=== PATIENT | female | born 1975 | race Two or more races ===

== ENCOUNTER 2020-05-06 11:20 | Emergency (ER) | payer MEDICAID, OTHER ==
[~2020-05-06] VITALS: Ht 154.9 cm; Wt 73.5 kg
[2020-05-06 12:09] LABS: Basophils # (auto) 0 10 ^3/uL (0-0.2); Basophils % (auto) 0.6 % (0.0-2.0); Eosinophils # (auto) 0.1 10 ^3/uL (0-0.8); Eosinophils % (auto) 1.3 % (0.0-7.0); Hematocrit 44.7 % (36.0-46.0); Hemoglobin 15.1 g/dL (12.2-16.2); Lymphocytes # (auto) 1.6 10 ^3/uL (0.4-5.4); Lymphocytes % (auto) 21.1 % (10.0-50.0); Mean Corpuscular Hemoglobin 28.7 pg (28.0-32.0); Mean Corpuscular Hgb Conc. 33.8 g/dL (32.0-36.0); Monocytes # (auto) 0.4 10 ^3/uL (0-1.3); Monocytes % (auto) 5.7 % (0.0-12.0); Neutrophils # (auto) 5.4 10 ^3/uL (1.6-8.6); Neutrophils % (auto) 71.3 % (37.0-80.0); Platelet Count (auto) 331 10^3/uL (140-450); Red Blood Cells 5.26 10^6/uL (4.0-5.20); Red Cell Distribution Width 14.9 % (11.8-14.3); White Blood Cell 7.5 10^3/uL (4.4-10.8)
[2020-05-06 12:28] LABS: Albumin 3.6 g/dL (3.4-5.0); Amylase 118 U/L (25-115); Anion Gap 1 (5-15); Blood Urea Nitrogen 10 mg/dL (7-18); Calcium 9.5 mg/dL (8.5-10.1); Carbon Dioxide 30 mmol/L (21-32); Chloride 106 mmol/L (98-107); Glucose 104 mg/dL (74-106); Lipase 124 U/L (73-393); Potassium 3.7 mmol/L (3.5-5.1); Sodium 137 mmol/L (136-145)
[2020-05-06 12:35] LABS: Alanine Aminotransferase 17 U/L (13-56); Alkaline Phosphatase 72 U/L (45-117); Aspartate Aminotransferase 13 U/L (15-37); Bilirubin, Total 0.4 mg/dL (0.2-1.0); GFR African American 78 mL/min; GFR Non-African American 64 mL/min; Total Protein 7.6 g/dL (6.4-8.2)
[2020-05-06 12:38] LABS: INR 1.06 (0.9-1.15)
[2020-05-06 16:11] VITALS: BP 127/70
== END 2020-05-06 16:09 | disposition home or self-care (01) ==
LOC: ER 11:20
DX: K29.50 Unspecified chronic gastritis without bleeding (principal); N39.0 Urinary tract infection, site not specified
CPT/HCPCS: 36415; 76705; 80053; 82150; 83690; 83735; 84484; 85025; 85610; 85730; 93005

== ENCOUNTER 2020-10-22 17:37 | Emergency (ER) | payer MEDICAID ==
[~2020-10-22] VITALS: Ht 154.9 cm; Wt 72.6 kg
[2020-10-22 18:25] LABS: Basophils # (auto) 0.1 10 ^3/uL (0-0.2); Basophils % (auto) 0.7 % (0.0-2.0); Eosinophils # (auto) 0.2 10 ^3/uL (0-0.8); Eosinophils % (auto) 1.9 % (0.0-7.0); Hemoglobin 15.5 g/dL (12.2-16.2); Lymphocytes # (auto) 2.3 10 ^3/uL (0.4-5.4); Lymphocytes % (auto) 25.9 % (10.0-50.0); Mean Corpuscular Hemoglobin 29.4 pg (28.0-32.0); Mean Corpuscular Hgb Conc. 35.2 g/dL (32.0-36.0); Mean Corpuscular Volume 83.6 fL (80.0-100.0); Monocytes # (auto) 0.7 10 ^3/uL (0-1.3); Monocytes % (auto) 8.1 % (0.0-12.0); Neutrophils # (auto) 5.6 10 ^3/uL (1.6-8.6); Neutrophils % (auto) 63.4 % (37.0-80.0); Nucleated Red Blood Cells % 0.1 %; Platelet Count (auto) 296 10^3/uL (140-450); Red Blood Cells 5.26 10^6/uL (4.0-5.20); Red Cell Distribution Width 14.9 % (11.8-14.3); White Blood Cell 8.8 10^3/uL (4.4-10.8)
[2020-10-22 18:40] LABS: Albumin 3.8 g/dL (3.4-5.0); Calcium 9.5 mg/dL (8.5-10.1); Magnesium 1.9 mg/dL (1.6-2.6); Potassium 3.8 mmol/L (3.5-5.1)
[2020-10-22 18:44] LABS: BUN/Creatinine Ratio 11.9; Bilirubin, Total 0.3 mg/dL (0.2-1.0); Total Protein 7.6 g/dL (6.4-8.2)
[2020-10-22 18:57] LABS: Urine Bacteria FEW /hpf (None Seen); Urine Blood 1+ /uL (Negative); Urine Mucus FEW (None Seen); Urine Specific Gravity 1.015 (1.001-1.035); Urine WBC 1 /hpf (0 - 5)
[2020-10-22 20:15] VITALS: BP 129/79
== END 2020-10-22 22:18 | disposition home or self-care (01) ==
LOC: ER 17:37
DX: N39.0 Urinary tract infection, site not specified (principal); Z90.49 Acquired absence of other specified parts of digestive tract; Z98.51 Tubal ligation status
CPT/HCPCS: 36415; 74176; 80053; 81001; 82150; 83690; 83735; 84702; 85025; 85049

== ENCOUNTER 2021-04-29 12:54 | Emergency (ER) | payer MEDICAID, OTHER ==
[~2021-04-29] VITALS: Ht 154.9 cm; Wt 72.6 kg
[2021-04-29 15:57] VITALS: BP 127/82
[2021-04-29] MEDS ORDERED: KETOROLAC TROMETH 60MG/2ML VIAL IM ONE (16:45)
[2021-04-29] MEDS ORDERED: PRED20TA2 PO (17:18)
[2021-04-29] MEDS ORDERED: ACET-1080 PO (17:18)
== END 2021-04-29 17:25 | disposition home or self-care (01) ==
LOC: EDUNIT# 12:54 → ER 12:54
DX: M50.30 Other cervical disc degeneration, unspecified cervical region (principal)
CPT/HCPCS: 72040; J1885

== ENCOUNTER 2022-02-14 14:26 | Emergency (ER) | payer MEDICAID ==
[~2022-02-14] VITALS: Ht 154.9 cm; Wt 80.0 kg
[~2022-02-14 14:26] MED LIST: ACET-1080 PO; PRED20TA2 PO
[2022-02-14 19:00] VITALS: BP 118/80
[2022-02-14] MEDS ORDERED: ACE3T PO (19:06)
[2022-02-14] MEDS ORDERED: ONDA-144 PO (19:06)
== END 2022-02-14 19:19 | disposition home or self-care (01) ==
LOC: ER 14:26
DX: G44.209 Tension-type headache, unspecified, not intractable (principal); N18.9 Chronic kidney disease, unspecified; Z90.49 Acquired absence of other specified parts of digestive tract
CPT/HCPCS: 70450

== ENCOUNTER 2022-05-15 11:10 | Emergency (ER) | payer MEDICAID ==
[~2022-05-15] VITALS: Ht 154.9 cm; Wt 80.0 kg
[~2022-05-15 11:10] MED LIST changes: +ACE3T PO; +ONDA-144 PO
[2022-05-15] MEDS ORDERED: SODIUM CHLORIDE 0.9% 1,000 ML IVB ONE (11:30)
[2022-05-15 11:54] LABS: Urine Bacteria None Seen /hpf (None Seen); Urine WBC None Seen /hpf (0 - 5)
[2022-05-15 12:17] LABS: Basophils # (auto) 0 10 ^3/uL (0-0.2); Basophils % (auto) 0.5 % (0.0-2.0); Eosinophils # (auto) 0.1 10 ^3/uL (0-0.8); Hemoglobin 15.2 g/dL (12.2-16.2); Lymphocytes # (auto) 2.1 10 ^3/uL (0.4-5.4); Mean Corpuscular Volume 84.1 fL (80.0-100.0); Monocytes # (auto) 0.6 10 ^3/uL (0-1.3)
[2022-05-15 12:19] LABS: Eosinophils % (auto) 1.6 % (0.0-7.0); Hematocrit 46.6 % (36.0-46.0); Lymphocytes % (auto) 23.8 % (10.0-50.0); Mean Corpuscular Hemoglobin 27.4 pg (28.0-32.0); Mean Corpuscular Hgb Conc. 32.6 g/dL (32.0-36.0); Monocytes % (auto) 7.1 % (0.0-12.0); Neutrophils # (auto) 5.8 10 ^3/uL (1.6-8.6); Red Blood Cells 5.54 10^6/uL (4.0-5.20); White Blood Cell 8.7 10^3/uL (4.4-10.8)
[2022-05-15 12:24] LABS: Albumin 3.6 g/dL (3.4-5.0); BUN/Creatinine Ratio 11.5; Calcium 9.7 mg/dL (8.5-10.1)
[2022-05-15 12:27] LABS: Bilirubin, Total 0.3 mg/dL (0.2-1.0); Total Protein 7.3 g/dL (6.4-8.2)
[2022-05-15 13:33] LABS: Urine Blood Negative /uL (Negative); Urine Specific Gravity 1.015 (1.001-1.035)
[2022-05-15 13:55] VITALS: BP 140/96
== END 2022-05-15 13:57 | disposition home or self-care (01) ==
LOC: ER 11:10
DX: R10.9 Unspecified abdominal pain (principal); I88.0 Nonspecific mesenteric lymphadenitis; R19.7 Diarrhea, unspecified; N18.9 Chronic kidney disease, unspecified; K21.9 Gastro-esophageal reflux disease without esophagitis; Z90.49 Acquired absence of other specified parts of digestive tract; Z79.899 Other long term (current) drug therapy; Z88.1 Allergy status to other antibiotic agents; Z88.8 Allergy status to other drugs, medicaments and biological substances
CPT/HCPCS: 36415; 80053; 81001; 85025; 93005; 96360; 99284; J7030

== ENCOUNTER 2024-02-08 17:49 | Inpatient (IN) | payer SELFPAY ==
[~2024-02-08] VITALS: Ht 154.9 cm; Wt 85.5 kg
[2024-02-08 19:01] LABS: Urine Bacteria None Seen /hpf (None Seen)
[2024-02-08 19:14] LABS: Basophils # (auto) 0.1 10 ^3/uL (0-0.2); Basophils % (auto) 0.7 % (0.0-2.0); Eosinophils # (auto) 0.2 10 ^3/uL (0-0.8); Eosinophils % (auto) 2.6 % (0.0-7.0); Hematocrit 43.2 % (36.0-46.0); Hemoglobin 14.4 g/dL (12.2-16.2); Lymphocytes # (auto) 2.3 10 ^3/uL (0.4-5.4); Lymphocytes % (auto) 28.5 % (10.0-50.0); Mean Corpuscular Hemoglobin 27.4 pg (28.0-32.0); Mean Corpuscular Hgb Conc. 33.4 g/dL (32.0-36.0); Mean Corpuscular Volume 82.2 fL (80.0-100.0); Monocytes # (auto) 0.5 10 ^3/uL (0-1.3); Monocytes % (auto) 6.9 % (0.0-12.0); Neutrophils # (auto) 4.9 10 ^3/uL (1.6-8.6); Neutrophils % (auto) 61.3 % (37.0-80.0); Nucleated Red Blood Cells % 0.1 %; Platelet Count (auto) 369 10^3/uL (140-450); Red Blood Cells 5.25 10^6/uL (4.0-5.20); Red Cell Distribution Width 15.6 % (11.8-14.3); White Blood Cell 7.9 10^3/uL (4.4-10.8)
[2024-02-08 19:18] LABS: Urine Blood TRACE /uL (Negative); Urine Clarity Turbid (Clear); Urine Color Light-Yellow (Yellow); Urine Protein, UAD 1+ (Negative); Urine Specific Gravity 1.014 (1.001-1.035); Urine Urobilinogen Normal (Negative); Urine WBC 1 /hpf (0 - 5); Urine pH 5.5 (5.0-9.0)
[2024-02-08] MEDS: ASPirin 81 mg TAB PO ONE (19:21)
[2024-02-08 19:36] LABS: Alanine Aminotransferase 22 U/L (7-40); Albumin 4.4 g/dL (3.2-4.8); Alkaline Phosphatase 95 U/L (46-116); Anion Gap 6 (5-15); Aspartate Aminotransferase 17 U/L (13-40); Bilirubin, Total 0.3 mg/dL (0.2-1.0); Blood Urea Nitrogen 15 mg/dL (9-23); Calcium 10.5 mg/dL (8.7-10.4); Carbon Dioxide 29 mmol/L (20-31); Chloride 104 mmol/L (98-107); Glucose 123 mg/dL (74-106); Potassium 4.3 mmol/L (3.5-5.1); Sodium 139 mmol/L (136-145); Total Protein 7.2 g/dL (5.7-8.2)
[2024-02-08] MEDS: MORPHINE SULFATE 4 MG/ML SYR/VIAL IV ONE (20:50)
[2024-02-08] MEDS: ONDANSETRON HCL 4 MG/2 ML VIAL IV ONE (20:51)
[2024-02-09] VITALS (8 sets, daily range): BP systolic 105–134; BP diastolic 64–83; PULSE 59–90; RESP 14–19; TEMP 97.4–98.1; O2SAT 96–99
[2024-02-09] MEDS ORDERED: traMADol HCL 50 MG TAB PO PRN
[2024-02-09] MEDS: ATORVASTATIN 20 MG TAB PO ONE (00:12)
[2024-02-09 00:25] LABS: INR 1.01 (0.9-1.15); Partial Thromboplastin Time 28.2 SEC (24.5-34.5); Prothrombin Time 10.7 sec (9.3-11.8)
[2024-02-09] MEDS: PANTOPRAZOLE 40 MG/10 ML VIAL INJ IV ONE (00:31)
[2024-02-09] MEDS: ACETAMINOPHEN 500 MG TAB PO PRN (03:44)
[2024-02-09 04:03] LABS: Basophils # (auto) 0 10 ^3/uL (0-0.2); Basophils % (auto) 0.7 % (0.0-2.0); Eosinophils # (auto) 0.2 10 ^3/uL (0-0.8); Eosinophils % (auto) 3.3 % (0.0-7.0); Hematocrit 42.2 % (36.0-46.0); Hemoglobin 13.9 g/dL (12.2-16.2); Lymphocytes # (auto) 2.1 10 ^3/uL (0.4-5.4); Lymphocytes % (auto) 27.5 % (10.0-50.0); Mean Corpuscular Hemoglobin 27.2 pg (28.0-32.0); Mean Corpuscular Volume 82.5 fL (80.0-100.0); Monocytes # (auto) 0.6 10 ^3/uL (0-1.3); Monocytes % (auto) 7.3 % (0.0-12.0); Neutrophils # (auto) 4.6 10 ^3/uL (1.6-8.6); Neutrophils % (auto) 61.2 % (37.0-80.0); Nucleated Red Blood Cells % 0.2 %; Platelet Count (auto) 334 10^3/uL (140-450); Red Blood Cells 5.12 10^6/uL (4.0-5.20); Red Cell Distribution Width 15.7 % (11.8-14.3); White Blood Cell 7.6 10^3/uL (4.4-10.8)
[2024-02-09 04:04] LABS: Chloride 106 mmol/L (98-107); Potassium 3.7 mmol/L (3.5-5.1); Sodium 139 mmol/L (136-145)
[2024-02-09 04:05] LABS: Anion Gap 7 (5-15); Carbon Dioxide 26 mmol/L (20-31)
[2024-02-09 04:10] LABS: BUN/Creatinine Ratio 11.7 (10.0-20.0); Blood Urea Nitrogen 12 mg/dL (9-23); Glucose 105 mg/dL (74-106)
[2024-02-09 04:12] LABS: Creatine Kinase IFCC 45 U/L (34-145)
[2024-02-09 04:33] LABS: Rapid Influenza A Negative (Negative); Rapid Influenza B Negative (Negative)
[2024-02-09 04:34] LABS: COVID19 ANTIGEN SOFIA FIA NEGATIVE (NEGATIVE)
[2024-02-09 04:35] LABS: Calcium 9.9 mg/dL (8.7-10.4)
[2024-02-09 04:37] LABS: Erythrocyte Sedimentation Rate 9 mm/hr (0-20)
[2024-02-09] MEDS: POTASSIUM EFFERVESENT TAB 25 MEQ PO ONE (06:57)
[2024-02-09] MEDS: PANTOPRAZOLE 40 MG TAB PO SCH (06:57)
[2024-02-09] MEDS ORDERED: OMNIPAQUE 12mg/ml 500ml ORAL SOLUTION PO ONE (07:23)
[2024-02-09] MEDS ORDERED: IOHEXOL 300 MG/ML 100ML BOTTLE IJ ONE (09:39)
[2024-02-09] MEDS: LACTULOSE 20Gm/30ML SOLN PO ONE (10:15)
[2024-02-09] MEDS: ASPirin 81 mg TAB PO SCH (10:49)
[2024-02-09 11:00] LABS: Triglycerides 163 mg/dL (< 150)
[2024-02-09 11:01] LABS: LDL Cholesterol 125 mg/dL (< 100)
[2024-02-09 11:02] LABS: Cholesterol 191 mg/dL (< 200); HDL Cholesterol 49 mg/dL (40-59)
[2024-02-09] MEDS ORDERED: PANT40TA2 PO (11:02)
[2024-02-09] MEDS ORDERED: SUMA25TA2 PO (11:02)
[2024-02-09] MEDS: ATORVASTATIN 20 MG TAB PO SCH (22:00)
[2024-02-10] VITALS (9 sets, daily range): BP systolic 108–124; BP diastolic 67–85; PULSE 73–131; RESP 14–93; TEMP 97.3–98; O2SAT 83–99
[2024-02-11 01:00] VITALS: BP 113/84; PULSE 101; RESP 20; TEMP 98.1; O2SAT 95
[2024-02-11 05:00] VITALS: BP 109/75; PULSE 90; RESP 20; TEMP 97.6; O2SAT 99
[2024-02-11] MEDS: MORPHINE SULFATE INJ 2 MG/ml SYRG IV PRN (08:46)
[2024-02-11 09:00] VITALS: BP 122/85; PULSE 98; RESP 20; TEMP 98.1; O2SAT 96
[2024-02-11 13:20] VITALS: BP 118/76; PULSE 94; RESP 19; TEMP 98; O2SAT 97
== END 2024-02-11 14:40 | disposition home or self-care (01) | DRG 556 ==
LOC: ER 18:01 → TELE 23:50 → TELE-WESTW 02-09 05:26
PROVIDERS: ADMIT Internal Medicine; ATTEND Internal Medicine
DX: M79.7 Fibromyalgia (principal); E66.01 Morbid (severe) obesity due to excess calories; E78.5 Hyperlipidemia, unspecified; M32.9 Systemic lupus erythematosus, unspecified; K21.9 Gastro-esophageal reflux disease without esophagitis; K75.81 Nonalcoholic steatohepatitis (NASH); G43.909 Migraine, unspecified, not intractable, without status migrainosus; G89.29 Other chronic pain; Z82.49 Family history of ischemic heart disease and other diseases of the circulatory system; Z90.49 Acquired absence of other specified parts of digestive tract; Z83.3 Family history of diabetes mellitus; Z68.35 Body mass index [BMI] 35.0-35.9, adult; Z79.899 Other long term (current) drug therapy
CPT/HCPCS: 36415; 71045; 74177; 80048; 80053; 80061; 81001; 82270; 82306; 82550; 82607; 83036; 83735; 83880; 84443; 84484; 84702; 85025; 85610; 85652; 85730; 86038; 86141; 87426; 87804; 93005; 93306; 96374; 99291; G0378; J2470

== ENCOUNTER 2024-02-13 15:49 | Emergency (ER) | payer SELFPAY ==
[~2024-02-13] VITALS: Ht 154.9 cm; Wt 83.3 kg
[~2024-02-13 15:49] MED LIST changes: +PANT40TA2 PO; +SUMA25TA2 PO
[2024-02-13 16:08] VITALS: BP 109/82; PULSE 107; RESP 16; O2SAT 97
[2024-02-13 16:49] LABS: Basophils # (auto) 0.1 10 ^3/uL (0-0.2); Eosinophils # (auto) 0.2 10 ^3/uL (0-0.8); Eosinophils % (auto) 1.5 % (0.0-7.0); Hematocrit 45.1 % (36.0-46.0); Hemoglobin 14.9 g/dL (12.2-16.2); Lymphocytes # (auto) 2.3 10 ^3/uL (0.4-5.4); Lymphocytes % (auto) 22.8 % (10.0-50.0); Mean Corpuscular Hemoglobin 27.2 pg (28.0-32.0); Mean Corpuscular Hgb Conc. 33.1 g/dL (32.0-36.0); Mean Corpuscular Volume 82.2 fL (80.0-100.0); Monocytes # (auto) 0.6 10 ^3/uL (0-1.3); Monocytes % (auto) 5.4 % (0.0-12.0); Neutrophils % (auto) 69.3 % (37.0-80.0); Nucleated Red Blood Cells % 0.1 %; Platelet Count (auto) 381 10^3/uL (140-450); Red Blood Cells 5.48 10^6/uL (4.0-5.20); White Blood Cell 10.1 10^3/uL (4.4-10.8)
[2024-02-13 16:57] LABS: Chloride 108 mmol/L (98-107); Potassium 4.2 mmol/L (3.5-5.1); Sodium 139 mmol/L (136-145)
[2024-02-13 16:58] LABS: Anion Gap 6 (5-15); Carbon Dioxide 25 mmol/L (20-31)
[2024-02-13 16:59] LABS: Calcium 9.7 mg/dL (8.7-10.4)
[2024-02-13 17:03] LABS: Glucose 155 mg/dL (74-106)
[2024-02-13 17:04] LABS: BUN/Creatinine Ratio 13.3 (10.0-20.0); Blood Urea Nitrogen 17 mg/dL (9-23)
== END 2024-02-13 17:49 | disposition home or self-care (01) ==
LOC: ER 15:49
DX: R00.2 Palpitations (principal); R53.1 Weakness; K21.9 Gastro-esophageal reflux disease without esophagitis; Z88.1 Allergy status to other antibiotic agents; Z88.8 Allergy status to other drugs, medicaments and biological substances; Z79.899 Other long term (current) drug therapy; Z90.49 Acquired absence of other specified parts of digestive tract; Z98.890 Other specified postprocedural states
CPT/HCPCS: 36415; 71046; 80048; 84484; 85025